=== PATIENT | male | born 1960 ===

== ENCOUNTER 2023-03-25 16:46 | Inpatient (IN) | payer OTHER ==
[~2023-03-25] VITALS: Ht 157.5 cm; Wt 72.1 kg
[2023-03-30] MEDS ORDERED: FINASTERIDE5 MG PO (15:01)
[2023-03-30] MEDS ORDERED: METFORMIN HCL500 M3 PO (15:02)
[2023-03-30] MEDS ORDERED: COZAAR100 MG PO (15:02)
[2023-03-30] MEDS ORDERED: HYDROCHLOROTHIA25 MG PO (15:02)
[2023-04-01] MEDS ORDERED: TAMS0.4C (13:01)
[2023-04-03] MEDS ORDERED: PEPCID AC20 MG PO (09:34)
[2023-04-03] MEDS ORDERED: PERCOCET 5-3251 EACH PO (09:34)
[2023-04-03] MEDS ORDERED: INTESTINEX680 M1 PO (09:35)
[2023-04-03] MEDS ORDERED: LEVSIN/SL0.125 MG SL (09:35)
== END 2023-04-03 13:13 | disposition home or self-care (01) | DRG 331 ==
LOC: SURH 04-01 07:00 → O/R 04-01 09:07 → SURH 04-01 09:07
PROVIDERS: ADMIT Surgery; ATTEND Surgery
PROC: 07BB4ZZ Excision of Mesenteric Lymphatic, Percutaneous Endoscopic Approach (ICD-10-PCS; 2023-04-01)
PROC: 07BC4ZZ Excision of Pelvis Lymphatic, Percutaneous Endoscopic Approach (ICD-10-PCS; 2023-04-01)
PROC: 3E0F7SF Introduction of Other Gas into Respiratory Tract, Via Natural or Artificial Opening (ICD-10-PCS; 2023-04-01)
PROC: 0DTF4ZZ Resection of Right Large Intestine, Percutaneous Endoscopic Approach (ICD-10-PCS; principal; 2023-04-01 07:00)
DX: D12.0 Benign neoplasm of cecum (principal); D12.9 Benign neoplasm of anus and anal canal; A63.0 Anogenital (venereal) warts; R59.0 Localized enlarged lymph nodes